=== PATIENT | male | born 1985 | race Caucasian/White ===

== ENCOUNTER 2016-10-02 07:38 | Day surgery (SDC) | payer OTHER ==
[~2016-10-02] VITALS: Ht 188 cm; Wt 103.0 kg
[~2016-10-02 07:38] MED LIST: 0.9% Sodium Chloride 1,000 ML IV SCH; ESOM40CA41 PO; FEXO-106 PO; MONT10TA20 PO; Sodium Chloride LOK Flush 10 mL Syringe IV PRN; fentaNYL-PF 50 mCg/mL 2 mL Inj IVPUSH PRN
--- NOTE | 2016-10-02 08:27 | PCM.ENDEGD ---
EGD Date of Service: Oct 02, 2016 Physician Luan Rice MD Pre Procedure Diagnosis: Abdominal pain on Nexium for a number of years Post Procedure Dx & Findings: Esophageal erosion fundic polyp antral erosion duodenal irritation Procedure Esophagogastroduodenoscopy PROCEDURE IN DETAIL: After proper sedation, Olympus video endoscope was inserted into patient's mouth and esophagus was successfully intubated. Scope introduced esophagus. Esophagus showed normal shiny whitish mucosa consistent with squamous cell component. Z line was not intact at 45 cm cm from the incisors. Small sub mm erosion noted. Scope further events to thee stomach. Stomach showed normal shiny mucosa with normal appearing rugae folds without any ulcer mass. In the prepylorus, there was a swollen tissue with erosion in the center which is biopsied. This was about 1.2 cm in size. Cardia fundus body antrum pylorus were all visualized. Retroflexion was done. Several fundic polyps largest being about 4 mm noted. Sampling biopsies obtained. Stomach was easily inflated and deflatable using air. Scope further events to the distal duodenum. Duodenum revealed normal villous structures with slightly blunted folds and some mild edema without any mass ulcer erosion. 5 biopsies obtained to rule out celiac disease. Impression Esophageal erosion fundic polyp Prepyloric erosion duodenal irritation Recommendation Continue Nexium 24 hour pH study and manometry Presedation Assessment Risks and Benefits Informed consent was obtained from the patient after all risks and benefits including but not limited to drug reaction, infection, pain, bleeding, perforation, as well as alternatives were discussed. Patient monitoring Continuous pulse oximetry, cardiac monitoring, blood pressure monitoring, IV access, and oxygen at 2L per nasal cannula. Periprocedural Fentanyl: Fentanyl 125mcg Incrementally Midazolam: Midazolam 6mg Incrementally Complications There were no periprocedural complications identified. Post Procedure Plan Post Procedure Recommendations 1. Restrict activities today. 2. Resume normal activities in the morning. 3. Resume medications. 4. GERD behavioral modification: - Avoid fatty, acidic, spicy, large meals - Do not lie down after meals - Do not eat or drink anything for at least 2 1/2 hours before going to bed at night - Discontinue tobacco and alcohol - Decrease or avoid caffeine - Avoid chocolate and mints - Decrease weight - Avoid aspirin and non steroidal anti-inflammatory agents (NSAID) such as Aleve, Advil, Mobic, Naproxen, Ibuprofen, etc 5. Add proton pump inhibitor. Take 30 minutes before 1st meal of the day. 6. Patient informed of normal post procedure side effects as bloating, drowsiness, blood streaking in the stool 7. If gastric biopsy reveal H.pylori, continue with appropriate treatment 8. If small bowel biopsy reveals celiac, continue with appropriate treatment 9. Please don't hesitate to call me with any questions Luan Rice MD Oct 02, 2016 08:27
[2016-10-02 08:31] VITALS: BP 109/69; PULSE 58; RESP 12; O2SAT 96
[2016-10-02 08:45] VITALS: BP 99/66; PULSE 52; RESP 14; O2SAT 95
[2016-10-02 08:53] VITALS: BP 99/66; PULSE 52; RESP 14; O2SAT 97
[2016-10-02 08:54] VITALS: BP 106/72; PULSE 65; RESP 14; O2SAT 97
--- NOTE | 2016-10-03 14:01 | PATH ---
SURGICAL PATHOLOGY Attending Physician:Luan Rice M.D. CASE STATUS: Signed Out PATIENT NAME: GAVIN HERNANDEZ PID: [id number] : 1985 DATE COLLECTED:10/02/2016 16:05 SPECIMEN: 1: Esophagus, Biopsy 2: Stomach, Polyp, Biopsy 3: Stomach, Antrum, Biopsy 4: Duodenum, Biopsy CLINICAL HISTORY: ABD PAIN,ESOPHAGEAL EROSIONS,ANTRAL EROSIONS FINAL DIAGNOSIS: 1.ESOPHAGUS BIOPSY: FRAGMENT OF GASTRIC OXYNTIC-TYPE MUCOSA WITH CHANGES OF BENIGN FUNDIC GLAND POLYP, NEGATIVE FOR ATYPIA. NO SQUAMOUS EPITHELIUM IDENTIFIED. Negative for evidence of Helicobacter. Negative for intestinal metaplasia. 2.STOMACH POLYP BIOPSY: BENIGN FUNDIC GLAND POLYP, NEGATIVE FOR ATYPIA. Negative for evidence of Helicobacter. Negative for intestinal metaplasia. 3.STOMACH ANTRUM, BIOPSY: MILD CHRONIC GASTRITIS INVOLVING ANTRAL MUCOSA. Negative for evidence of Helicobacter. Negative for intestinal metaplasia. Negative for dysplasia and malignancy. 4.DUODENUM BIOPSY: FOCAL CHANGES OF CHRONIC DUODENITIS WITH FOCAL FOVEOLAR METAPLASIA. Negative for evidence of celiac disease. Negative for dysplasia and malignancy. ICD10 code K31.7 GROSS DESCRIPTION: The specimen is received in four formalin filled containers labeled with the patient's name. 1). The specimen is sublabeled "GE junction" and consists of a 0.3 x 0.3 x 0.2 CM torsion of tissue which is entirely submitted in cassette 1A. 2). The specimen is sublabeled "gastric polyp" and consists of 2 portions of tissue which aggregate to 0.3 x 0.3 x 0.2 CM. The specimen is entirely submitted in cassette 2A. 3). The specimen is sublabeled "antral erosion" and consists of 2 portions of tissue which aggregate to 0.3 x 0.3 x 0.2 CM. The specimen is entirely submitted in cassette 3A. 4). The specimen is sublabeled "duodenal" and consists of 2 portions of tissue which aggregate to 0.4 x 0.3 x 0.2 CM. The specimen is entirely submitted in cassette 4A. 10/02/2016 [facility] MICRO DESCRIPTION: See diagnosis. ICD-9 CODES: CPT CODES: 1: 52202 2: 28888 3: 24061 4: 71202 Electronically Signed Out Tho Cleveland MD [facility] [address], [place] [address] Technical component performed at [facility], [address], [place], [address]
== END 2016-10-02 23:59 | disposition home or self-care (01) ==
LOC: END 07:38 → EDUNIT# 08:30 → END 23:59
PROVIDERS: ATTEND Internal Medicine
DX: K31.7 Polyp of stomach and duodenum (principal); K29.50 Unspecified chronic gastritis without bleeding; K29.80 Duodenitis without bleeding
CPT/HCPCS: 43239; 88305; G0500; J2250; J3010; J7030

== ENCOUNTER 2016-11-11 12:44 | Day surgery (SDC) | payer OTHER ==
[~2016-11-11 12:44] MED LIST changes: -0.9% Sodium Chloride 1,000 ML IV SCH; +Lidocaine Topical 2% 30 mL Jelly ONE; -Sodium Chloride LOK Flush 10 mL Syringe IV PRN; -fentaNYL-PF 50 mCg/mL 2 mL Inj IVPUSH PRN
== END 2016-11-11 23:59 | disposition home or self-care (01) ==
LOC: END 12:44
PROVIDERS: ATTEND Internal Medicine
DX: R10.9 Unspecified abdominal pain (principal)

== ENCOUNTER → 2017-02-16 | Day surgery (SDC) | payer OTHER ==
[~2017-02-16] VITALS: Ht 185.4 cm; Wt 105.0 kg
[~2017-02-16] MED LIST changes: +0.9% Sodium Chloride 1,000 ML IV PRN; +DEXL30CA3 PO; -ESOM40CA41 PO; -Lidocaine Topical 2% 30 mL Jelly ONE; +OMEP20TA24 PO; +Sodium Chloride LOK Flush 10 mL Syringe IV PRN; +fentaNYL-PF 50 mCg/mL 2 mL Inj IVPUSH PRN
[2017-02-16 12:47] VITALS: BP 129/87; PULSE 53; RESP 14; O2SAT 98
--- NOTE | 2017-02-16 14:24 | PCM.ENDEGD ---
EGD Date of Service: Feb 16, 2017 Physician Luan Rice MD Pre Procedure Diagnosis: Reflux positive demister score on pH study on PPI Post Procedure Dx & Findings: Fundic polyps Procedure Esophagogastroduodenoscopy PROCEDURE IN DETAIL: After proper sedation, Olympus video endoscope was inserted into patient's mouth and esophagus was successfully intubated. Scope introduced esophagus. Esophagus showed normal shiny whitish mucosa consistent with squamous cell component. Z line was intact at 40 cm from the incisors. Scope further advanced to the stomach. Stomach showed normal shiny mucosa with normal appearing rugae folds without any ulcer mass erosion. Cardia fundus body antrum pylorus were all visualized. Retroflexion was done. Stomach was easily inflated and deflatable using air. Patient also had several small 1-2 mm fundic polyps. Because we obtain biopsies last time, biopsies were not obtained again. Scope further advanced to the distal duodenum. Duodenum revealed normal villous structures with normal appearing folds without any mass ulcer erosion. Impression Fundic polyps No esophagitis Recommendation Follow up in GI clinic Presedation Assessment Risks and Benefits Informed consent was obtained from the patient after all risks and benefits including but not limited to drug reaction, infection, pain, bleeding, perforation, as well as alternatives were discussed. Patient monitoring Continuous pulse oximetry, cardiac monitoring, blood pressure monitoring, IV access, and oxygen at 2L per nasal cannula. Periprocedural Fentanyl: Fentanyl 100mcg Incrementally Midazolam: Midazolam 8mg Incrementally Complications There were no periprocedural complications identified. Post Procedure Plan Post Procedure Recommendations 1. Restrict activities today. 2. Resume normal activities in the morning. 3. Resume medications. 4. GERD behavioral modification: - Avoid fatty, acidic, spicy, large meals - Do not lie down after meals - Do not eat or drink anything for at least 2 1/2 hours before going to bed at night - Discontinue tobacco and alcohol - Decrease or avoid caffeine - Avoid chocolate and mints - Decrease weight - Avoid aspirin and non steroidal anti-inflammatory agents (NSAID) such as Aleve, Advil, Mobic, Naproxen, Ibuprofen, etc 5. Add proton pump inhibitor. Take 30 minutes before 1st meal of the day. 6. Patient informed of normal post procedure side effects as bloating, drowsiness, blood streaking in the stool 7. If gastric biopsy reveal H.pylori, continue with appropriate treatment 8. If small bowel biopsy reveals celiac, continue with appropriate treatment 9. Please don't hesitate to call me with any questions Luan Rice MD Feb 16, 2017 14:24
[2017-02-16 14:27] VITALS: BP 110/66; PULSE 60; RESP 16; O2SAT 96
[2017-02-16 14:48] VITALS: BP 108/69; PULSE 59; RESP 15; O2SAT 98
== END | disposition home or self-care (01) ==
LOC: END 01:24
PROVIDERS: ATTEND Internal Medicine
DX: K31.7 Polyp of stomach and duodenum (principal); K21.9 Gastro-esophageal reflux disease without esophagitis; R10.9 Unspecified abdominal pain
CPT/HCPCS: 43235; G0500; J2250; J3010; J7030